=== PATIENT | female | born 1960 | race Caucasian/White ===

== ENCOUNTER → 2023-10-01 17:15 | Outpatient (REF) | payer BC, SELFPAY | LOC: WDC 17:15 | PROVIDERS: ATTENDING PHYSICIAN Obstetrics & Gynecology; FAMILY PHYSICIAN Emergency Medicine | DX: Z12.31 Encounter for screening mammogram for malignant neoplasm of breast (principal) | CPT/HCPCS: 77063; 77067 ==

== ENCOUNTER → 2023-10-22 07:10 | Outpatient (REF) | payer BC, SELFPAY ==
[2023-10-22 07:37] LABS: Hematocrit 42.9 % (37.0-47.0); Mean Corp Hgb Conc. 32.6 g/dL (33.0-37.0); Mean Corpuscular Hgb 28.5 pg (27.0-31.0); Mean Corpuscular Volume 87.2 fL (81.0-99.0); Mean Platelet Volume 8.5 fL (7.4-10.4); Platelet Count 212 10^3/uL (130-400); Red Blood Cell Count 4.92 10^6/uL (4.20-5.40); Red Cell Dist. Width 13.2 % (11.5-14.5); White Blood Cell Count 3.5 10^3/uL (4.8-10.8)
[2023-10-22 07:38] LABS: Ionized Calcium 1.43 mMOL/L (1.15-1.33)
[2023-10-22 07:54] LABS: Iron 82 ug/dl (37-170); Magnesium 2.2 mg/dl (1.6-2.3)
[2023-10-22 08:04] LABS: Percent Saturation 35 % (20-50); Total Iron Binding Capacity 234 ug/dl (265-497)
[2023-10-22 09:19] LABS: Vitamin D, 25-OH*** 51.8 ng/mL (30-80)
[2023-10-22 09:38] LABS: Ferritin 96.8 ng/ml (11.1-264.0)
[2023-10-23 09:34] LABS: Intact PTH 61.5 pg/ml (13.6-85.8)
== END ==
LOC: REG 07:10
PROVIDERS: ATTENDING PHYSICIAN Internal Medicine Endocrinology, Diabetes & Metabolism; FAMILY PHYSICIAN Emergency Medicine
DX: D50.9 Iron deficiency anemia, unspecified (principal); Z79.899 Other long term (current) drug therapy; E83.52 Hypercalcemia; E55.9 Vitamin D deficiency, unspecified; E34.9 Endocrine disorder, unspecified
CPT/HCPCS: 36415; 82306; 82330; 82728; 83540; 83550; 83735; 83970; 85027

== ENCOUNTER → 2023-10-24 09:26 | Outpatient (REF) | payer BC, SELFPAY ==
[2023-10-24 10:01] LABS: 24 Hour Urine Total Volume 1400 ml
[2023-10-24 10:32] LABS: 24 Hour Urine Creatinine 1.006 gm/day (0.8-1.8)
== END ==
LOC: REG 09:26
PROVIDERS: ATTENDING PHYSICIAN Internal Medicine Endocrinology, Diabetes & Metabolism
DX: E83.52 Hypercalcemia (principal); E55.9 Vitamin D deficiency, unspecified; E34.9 Endocrine disorder, unspecified
CPT/HCPCS: 81050; 82570

== ENCOUNTER 2023-10-29 05:08 | Inpatient (IN) | payer BC, SELFPAY ==
[2023-10-28 21:26] VITALS: BP 180/109
[2023-10-28 22:46] LABS: % Basophils 0.3 % (0-2); % Eosinophils 0.1 % (0-6); % Immature Granulocytes 0.3 % (0-0.5); % Lymphocytes 6.7 % (20.5-51.1); % Monocytes 4.5 % (1.7-9.3); % Neutrophils 88.1 % (42.2-75.2); Absolute Lymphocytes 0.7 10^3/uL (1.2-3.4); Absolute Monocytes 0.5 10^3/uL (0.1-0.6); Absolute Neutrophils 9.2 10^3/uL (1.4-6.5); Hematocrit 40.9 % (37.0-47.0); Mean Corp Hgb Conc. 34.2 g/dL (33.0-37.0); Mean Corpuscular Hgb 28.7 pg (27.0-31.0); Mean Corpuscular Volume 83.8 fL (81.0-99.0); Mean Platelet Volume 8.3 fL (7.4-10.4); Nucleated Red Blood Cells % 0 %; Platelet Count 211 10^3/uL (130-400); Red Blood Cell Count 4.88 10^6/uL (4.20-5.40); Red Cell Dist. Width 13.3 % (11.5-14.5); White Blood Cell Count 10.4 10^3/uL (4.8-10.8)
[2023-10-28 23:06] LABS: ALT (SGPT) 31 U/L (0-35); AST (SGOT) 34 U/L (14-36); Albumin 4.8 g/dl (3.5-5.0); Alkaline Phosphatase 95 U/L (38-126); Blood Urea Nitrogen 29 mg/dl (7-17); Calcium 11.3 mg/dl (8.4-10.2); Carbon Dioxide 27 mmol/L (22-30); Chloride 103 mmol/L (98-107); Glucose 114 mg/dl (70-99); Lipase 63 U/L (23-300); Potassium 4.4 mmol/L (3.5-5.1); Sodium 135 mmol/L (135-145); Total Bilirubin 0.7 mg/dl (0.2-1.3); Total Protein 7.7 g/dl (6.3-8.2); eGFR > 60.00
[2023-10-29] VITALS (17 sets, daily range): BP systolic 108–163; BP diastolic 54–86; BMI 28.8; BMI 28.0
[2023-10-29] MEDS: ZOFRAN 4 MG IV (00:36)
[2023-10-29] MEDS: NSS 1000 IV (00:36)
[2023-10-29] MEDS: DILAUDID 1 MG IV (00:37)
--- NOTE | 2023-10-29 00:37 | ED.GENMED ---
Addendum entered and electronically signed by Kel Escamilla DO 10/29/23 02:19:
Patient allergies noted, will check EKG IF QT okay proceed with Levaquin Flagyl
Original Note:
History of Present Illness
General
Chief Complaint: Abdominal Pain
Source: patient and spouse
Exam Limitations: none
Time Seen by Provider: 10/29/23 00:18
Nursing documentation reviewed up to this point in time: agreed with
Travel History
Have you had any contact with someone who has COVID-19?: No
Do you have any symptoms of coronavirus? Fever > 100 degrees, chills, cough, shortness of breath, sore throat, loss of taste or smell, muscle aches, or headache?: No
History of Present Illness
History of Present Illness:
63-year-old female presents with abdominal pain gradual onset earlier today worsens in the right mid abdomen felt feverish mild nausea no vomiting
No dysuria or frequency, no prior abdominal surgeries, non-smoker drinks socially not excess
Pain is worse with movement better with rest
Past History
Past History
ED Past Medical History: GERD
ED Past Surgical History: None
Social History
Tobacco: Non-smoker
Alcohol: Occasional
Drug: None
Personal:
Living: with family
Employment: Employed
Review of Systems
Review of Systems
All Other Systems: Not applicable
Constitutional: Reports fever
EENT: Reports no symptoms
Respiratory: Reports no symptoms
Cardiac: Reports no symptoms
ABD/GI: Reports abdominal pain, nausea and anorexia
: Reports no symptoms
Musculoskeletal: Reports no symptoms
Skin: Reports no symptoms
Neurological: Reports no symptoms
Endocrine: Reports no symptoms
Phy Exam
Physical Exam
Physical Exam:
Physical Exam
General: 60 is female nontoxic looks uncomfortable
Neck: No jaundice
Heart: s1/s2 regular rate and rhythm, no murmur. equal radial pulses.
Lungs: no acute respiratory distress. No wheeze
Abdomen: Tender in the right mid abdomen
Neuro: alert and oriented. no focal neurological deficits
Skin: no rash
Psychiatric: well kept. interactive and cooperative
Extremities: no edema.
Course
Orders/Labs/Results
Orders:
Orders
10/28/23 22:29
Complete Blood Count/With Diff Urgent
Comprehensive Metabolic Panel Urgent
Lipase Urgent
10/29/23 00:18
CT Abd/pelvis W Iv Cont Urgent
Comment:
Reason For Exam: pain
0.9% Sodium Chloride 1000 ml [Nss] 1,000 ml IV BOLUS
HYDROmorphone [Dilaudid] 1 mg IV NOW STA
Ondansetron Injectable [Zofran] 4 mg IV NOW STA
10/29/23 01:38
Urinalysis Reflex To Culture Urgent
Date Specimen was Collected: 10/29/23
Time Specimen was Collected: 01:37
Urine Microscopic Reflex Cult Urgent
Abnormal Lab Results
10/28/23 10/29/23
22:29 01:38
Absolute Neuts (auto) 9.2 H 10^3/uL
(1.4-6.5)
Absolute Lymphs (auto) 0.7 L 10^3/uL
(1.2-3.4)
Neutrophils % 88.1 H %
(42.2-75.2)
Lymphocytes % 6.7 L %
(20.5-51.1)
BUN 29 H mg/dl
(7-17)
Glucose 114 H mg/dl
(70-99)
Calcium 11.3 H mg/dl
(8.4-10.2)
Urine Ketones 1+ A
(Negative)
Ur Occult Blood Reflex 1+ A
(Negative)
10/28/23 22:29
10/28/23 22:29
Vital Signs
Initial and Last Documented VS:
Initial Vital Signs
Temp Pulse Resp BP Pulse Ox
100 F 111 20 180/109 96
10/28/23 21:26 10/28/23 21:26 10/28/23 21:26 10/28/23 21:26 10/28/23 21:26
Last Documented Vital Signs
Temp Pulse Resp BP Pulse Ox
100 F 93 16 130/63 94
10/28/23 21:26 10/29/23 00:35 10/29/23 00:35 10/29/23 01:00 10/29/23 01:00
MDM/Problems Addressed
Differential Diagnosis Includes:
Appendicitis cholecystitis colitis ovarian pathology
MDM/Problems Addressed:
Abdominal pain
*Radiology
Radiology exam reviewed: preliminary read by ED provider
*Pulse Oximetry
Patient hypoxic: no
*EKG
Interpreted by ED Provider?: NA
*Critical Care Note
Total Time (30-74mins, 75-104mins- exclusive of procedures): Not Applicable
Update Note
Update Note:
Update CAT scan looks abnormal to me reviewed with patient radiologist likely liver abscess versus other
ED Attending Note
-
Portions of this chart may have been created with voice recognition software.� Occasional wrong word or��sound alike� substitutions may have occurred due to the inherent limitations of voice recognition software.
Discharge Plan
Departure
Patient Disposition: Admit
Date of Disposition: 10/29/23
Time of Disposition: 02:00
Admit to: Med/Surg
Presentation/result/management discussed w/ accepting MD/DO: Hospitalist
Patient with high blood pressure during this ER visit?: No
Condition: Fair
Covid-19: Not Applicable
Discharge Problem:
Abscess of liver
Referrals:
Bev Carranza MD [Family Provider] -
Interventions
Interventions:
*Risk Screen - Suicide Last Done: 10/28/23 21:26
*General Assessment Last Done: 10/28/23 21:26
*Neglect/Abuse Screening Last Done: 10/28/23 21:26
RC-Elrfds-Rmjfnwezxm Assessment Last Done: 10/29/23 00:50
Discharge Date and Time
Print Language: SAMI
[2023-10-29 01:53] LABS: Urine Albumin Negative (Neg - Trace); Urine Bilirubin Negative (Negative); Urine Character Clear (Clear); Urine Color Yellow; Urine Glucose Negative (Negative); Urine Ketone 1+ (Negative); Urine Leukocyte Negative (Negative); Urine Nitrite Negative (Negative); Urine Occult Blood 1+ (Negative); Urine Urobilinogen Negative (Neg - 1+)
[2023-10-29 02:09] LABS: Urine White Cell None Seen /HPF (0-5)
--- NOTE | 2023-10-29 02:18 | ED.GENMED ---
History of Present Illness
General
Chief Complaint: Abdominal Pain
Time Seen by Provider: 10/29/23 00:18
Travel History
Have you had any contact with someone who has COVID-19?: No
Do you have any symptoms of coronavirus? Fever > 100 degrees, chills, cough, shortness of breath, sore throat, loss of taste or smell, muscle aches, or headache?: No
Past History
Past History
ED Past Medical History: GERD
ED Past Surgical History: None
Social History
Tobacco: Non-smoker
Alcohol: Occasional
Drug: None
Personal:
Living: with family
Employment: Employed
Course
Orders/Labs/Results
Orders:
Orders
10/28/23 22:29
Complete Blood Count/With Diff Urgent
Comprehensive Metabolic Panel Urgent
Lipase Urgent
10/29/23 00:18
CT Abd/pelvis W Iv Cont Urgent
Comment:
Reason For Exam: pain
0.9% Sodium Chloride 1000 ml [Nss] 1,000 ml IV BOLUS
HYDROmorphone [Dilaudid] 1 mg IV NOW STA
Ondansetron Injectable [Zofran] 4 mg IV NOW STA
10/29/23 01:38
Urinalysis Reflex To Culture Urgent
Date Specimen was Collected: 10/29/23
Time Specimen was Collected: 01:37
Urine Microscopic Reflex Cult Urgent
10/29/23 02:00
Blood Culture Q30M
NALDO Source: Blood/Venous
Specimen Description:
10/29/23 02:17
Electrocardiogram (*1) Urgent
Reason for Study: QTc Monitoring
EKG- Treatment ONCE
10/29/23 02:30
Blood Culture Q30M
NALDO Source: Blood/Venous
Specimen Description:
Abnormal Lab Results
03/31/24 04/01/24
22:29 01:38
Absolute Neuts (auto) 9.2 H 10^3/uL
(1.4-6.5)
Absolute Lymphs (auto) 0.7 L 10^3/uL
(1.2-3.4)
Neutrophils % 88.1 H %
(42.2-75.2)
Lymphocytes % 6.7 L %
(20.5-51.1)
BUN 29 H mg/dl
(7-17)
Glucose 114 H mg/dl
(70-99)
Calcium 11.3 H mg/dl
(8.4-10.2)
Urine Ketones 1+ A
(Negative)
Ur Occult Blood Reflex 1+ A
(Negative)
Urine RBC 3-6 A /HPF
(0-2)
10/28/23 22:29
10/28/23 22:29
Vital Signs
Initial and Last Documented VS:
Initial Vital Signs
Temp Pulse Resp BP Pulse Ox
100 F 111 20 180/109 96
10/28/23 21:26 10/28/23 21:26 10/28/23 21:26 10/28/23 21:26 10/28/23 21:26
Last Documented Vital Signs
Temp Pulse Resp BP Pulse Ox
100 F 93 16 130/63 94
10/28/23 21:26 10/29/23 00:35 10/29/23 00:35 10/29/23 01:00 10/29/23 01:00
ED Attending Note
-
Portions of this chart may have been created with voice recognition software.� Occasional wrong word or��sound alike� substitutions may have occurred due to the inherent limitations of voice recognition software.
Discharge Plan
Departure
Patient Disposition: Admit
Date of Disposition: 10/29/23
Time of Disposition: 02:00
Admit to: Med/Surg
Presentation/result/management discussed w/ accepting MD/DO: Hospitalist
Patient with high blood pressure during this ER visit?: No
Condition: Fair
Covid-19: Not Applicable
Discharge Problem:
Abscess of liver
Referrals:
Bev Carranza MD [Family Provider] -
Interventions
Interventions:
*Risk Screen - Suicide Last Done: 10/28/23 21:26
*General Assessment Last Done: 10/28/23 21:26
*Neglect/Abuse Screening Last Done: 10/28/23 21:26
DQ-Slxhsi-Xfnnictjbl Assessment Last Done: 10/29/23 00:50
Discharge Date and Time
Print Language: FINNISH
[2023-10-29] MEDS: FLAGYL 500 MG 100 IV (02:43)
--- NOTE | 2023-10-29 04:41 | HPS.HSE ---
Family Physician
-
Family Physician: Bev Carranza MD
Chief Complaint
-
abdominal pain
History of Present Illness
63F HX GERD pw mid abdominal pain.
Onset today , Gradually get worse, nauseated but no vomiting
Pain is worse with movement better with rest
Feverish - afebrile at ER
No recent travel
Denied Wt loss
Not on ant regular Meds except Omeprazole for GERD
Known to GI group
Medical History
Past Medical History
Past Medical History: Reports GERD
Past Surgical History: Reports None
Social History
Tobacco: Non-smoker
Alcohol: Occasional
Drug: None
Personal:
Living: With Family
Family History
Family History: Not pertinent
Allergies / Home Medications
Allergies reflects when Allergies were last updated in [facility].
Home Medications with original date entered in [facility]
Allergy/Medication List:
Allergies
Allergy/AdvReac Type Severity Reaction Status Date / Time
amoxicillin Allergy Unknown Verified 10/28/23 21:26
Cephalosporins Allergy Unknown Verified 10/28/23 21:26
Penicillins Allergy Unknown Verified 10/28/23 21:26
If medication reconciliation has not been performed, why?: Medication List N/A
Review of Systems
-
Constitutional: Reports No Symptoms
EENT: Reports No Symptoms
Respiratory: Reports No Symptoms
Cardiac: Reports No Symptoms
Abdomen/GI: Reports Abdominal Pain and Nausea; Denies Vomiting, Diarrhea or Constipated
: Reports No Symptoms
Musculoskeletal: Reports No Symptoms
Skin: Reports No Symptoms
Neurological: Reports No Symptoms
Endocrine: Reports No Symptoms
Hematologic/Lymphatic: Reports No Symptoms
Psych: Reports No Symptoms
Physical Exam
Vital Signs
Vital Signs
Temp Pulse Resp BP Pulse Ox
100 F 76 16 122/66 92
10/28/23 21:26 10/29/23 03:00 10/29/23 00:35 10/29/23 03:00 10/29/23 03:30
Physical Exam
General: Well Nourished, No Apparent Distress and Other (not toxic )
HEENT: NormoCephalic, Anicteric, Moist mucous membranes and Nose Appears Normal
Respiratory: Clear
Cardiac: S1/S2 and Regular Rhythm; No Tachycardia
Breast: Deferred by me
GI: Soft, Non Tender, Non Distended and Normal Bowel Sounds
Rectal: Deferred by Provider
Musculoskeletal: No Edema
Neuro: AO x 3
Psych: Calm
Laboratory Results
-
10/28/23 22:29
10/28/23 22:29
Laboratory Results
Total Bilirubin 0.7 mg/dl (0.2-1.3) 10/28/23 22:29
AST 34 U/L (14-36) 10/28/23 22:29
ALT 31 U/L (0-35) 10/28/23 22:29
Alkaline Phosphatase 95 U/L (38-126) 10/28/23 22:29
Lipase 63 U/L (23-300) 10/28/23 22:29
Data Reviewed
-
CT Scan: Report Reviewed by me
Lab Data: Labs Reviewed by me
Impression/Plan
-
Reviewed VS: unremarkable
Data
WCC 10.4
BUN 29
nl Cr
nl GFR
Ca 11.3
NEG UA
BCx sent
CT AP [place] page report
large multicystic collection within Rt liver - largest 13cm x 14 cm DDX: Biliary cystadenoma
No BWO
Moderate stool burden
ASSESSMENT & PLAN
Acute abdominal pain - Clinically stable
CT POS for large multicystic collection within Rt liver - largest 13cm x 14 cm DDX: Biliary cystadenoma vs liver abscess
nl LFT
No diarrhea, No recent travel
- afebrile and nl WCC
- NPO
- Hold off ABx for now
- GI consult for further eval
HX GERD
- on PPI
DVT Px: SCD
Code: Full
IP MS
[2023-10-29 07:07] LABS: Hematocrit 36.6 % (37.0-47.0); Hemoglobin 12.7 g/dL (12.0-16.0); Mean Corp Hgb Conc. 34.7 g/dL (33.0-37.0); Mean Corpuscular Hgb 29.1 pg (27.0-31.0); Mean Corpuscular Volume 83.9 fL (81.0-99.0); Mean Platelet Volume 8.5 fL (7.4-10.4); Platelet Count 190 10^3/uL (130-400); Red Blood Cell Count 4.36 10^6/uL (4.20-5.40); Red Cell Dist. Width 13.1 % (11.5-14.5); White Blood Cell Count 8.5 10^3/uL (4.8-10.8)
[2023-10-29 07:41] LABS: ALT (SGPT) 23 U/L (0-35); AST (SGOT) 23 U/L (14-36); Albumin 3.6 g/dl (3.5-5.0); Alkaline Phosphatase 70 U/L (38-126); Blood Urea Nitrogen 22 mg/dl (7-17); Calcium 10.4 mg/dl (8.4-10.2); Carbon Dioxide 26 mmol/L (22-30); Chloride 102 mmol/L (98-107); Estimated Creatinine Clearance 106 ml/min; Glucose 103 mg/dl (70-99); Potassium 4.5 mmol/L (3.5-5.1); Sodium 134 mmol/L (135-145); Total Bilirubin 0.8 mg/dl (0.2-1.3); Total Protein 6.1 g/dl (6.3-8.2); eGFR > 60.00
--- NOTE | 2023-10-29 09:07 | CON.GI ---
Addendum entered and electronically signed by Avtar Mosquera MD 10/29/23 17:49:
I saw and examined the patient.
The PLATE MOLDER or PA's note was reviewed and I agree with the note.
Comment:
Pt with iron def anemia diverticulosis, constipation who had acute abd pain, imaging by Ct showed a 15 cm liver cyst vs. abscess. MRI revealed either cyst or biliary cystadenoma. Pain has markedly improved in ER and pt hungry. No travel or
diarrhea
abd: soft nontender
impression
liver cyst vs cystadenoma
abd pain resolved
plan;
discussed with [place] [facility] specialist dr. bello who would not take sample and will d/w liver tumor board at [place] and come up with a plan regarding f/u. he believes this may be an incidental finding. so for now. advance diet and if pain is
resolved can do outpatient f/u. he will get in touch with Dr. Quintero and I will send her a message. I also explained to both patient, and Dr Colbert. they did give me their daughters number but when I called I had the wrong number.
if remains inpatient will continue w/u as well as look for other sources of pain.
Original Note:
Consultation
-
Date/Time Consultation Requested: 10/29/2023 @ 05:12
Date/Time Consultation Performed: 10/29/2023 @ 09:15
Requesting Provider: Dr. Champion
Performing Provider: CADE Beavers; Dr. Avtar Mosquera
Reason for Consultation: liver cyst/abscess
Medical History
Chief Complaint / HPI
Chief Complaint: Abdominal pain
History of Present Illness:
The patient is a 63-year-old female with a past medical history significant for iron deficiency anemia, chronic constipation, history of colon polyps, seasonal allergies, GERD, who presented to the emergency room with complaints of abdominal pain.
We are being asked to evaluate for possible liver abscess versus large simple cyst. She was last seen in the office in April, for routine follow-up of iron deficiency anemia along with chronic constipation. At that time had no complaints of
abdominal pain. She had extensive GI workup including VCE, EGD, colonoscopy for iron deficiency anemia which were unrevealing. She has had celiac and H. pylori testing in the past was also have been negative. She managed constipation with OTC
regimen. Today she reports acute onset of sharp right-sided abdominal pain around 2 PM yesterday. She notes that she has had intermittent discomfort to the right side but nothing severe and did not think much of it. She often relates this
discomfort to her chronic constipation. She notes with the severe onset of the right-sided abdominal pain yesterday she was unable to eat and felt nauseous. She also admits to feeling feverish and having chills but did not take a temperature at
home. She continued with symptoms and was unable to eat at her Easter dinner, which led her to coming to the emergency room. She denies any unintentional weight loss or loss of appetite prior to the onset of her symptoms. She denies any recent
travel or sick contacts, but notes she does have a mild respiratory infection several weeks prior. She denies any history of colitis or diverticulitis. She reports that she will take fiber or MiraLAX as needed for constipation, with her last bowel
movement being 2 days ago. He denies any overt diarrhea. She denies any melena, hematochezia, or hematemesis. She denies any history of liver disease. She denies any history of liver cysts but has never had imaging of her abdomen to her
recollection. She denies any family history of colon cancer, liver cancer or other GI cancers or disorders. She denies history of drug use. She drinks alcohol 1-2 times weekly with wine at most. A CT of the abdomen pelvis was done with IV
contrast only showing 'multiple large cystic collections within the liver the largest measuring up to 15 cm, along with moderate fecal retention within the cecum, and findings concerning for possible colitis of the ascending colon. Also present with
multiple large parapelvic cysts measuring up to 4 cm.' Routine labs on admission showed WBC 10.4, hemoglobin 14.0, platelets 211,000, sodium 135, potassium 4.4, BUN 29, creatinine 0.8, calcium 11.3, total bilirubin 0.7, AST 34, ALT 31, alk phos 95,
lipase 63. Blood cultures were sent and are pending. She did receive 1 dose of Flagyl and 1 L of IV fluid. Further antibiotics were held and she was made n.p.o., admitted for further evaluation by GI.
Past Medical History
Past Medical History: GERD and Other (Iron deficiency anemia, seasonal allergies, incomplete right bundle branch block)
Past Surgical History: Orthopedic (Right knee arthroscopy, meniscus surgery, bunionectomy of the left foot) and Other ([employer] teeth extraction)
Social History
Tobacco: Non-Smoker
Alcohol: Occasional
Drug: None
Personal:
Living: With Family
Family History
Family History: Reviewed & Not Pertinent
Allergies / Home Medications
Allergy/AdvReac Type Severity Reaction Status Date / Time
amoxicillin Allergy Unknown Verified 10/28/23 21:26
Cephalosporins Allergy Unknown Verified 10/28/23 21:26
Penicillins Allergy Unknown Verified 10/28/23 21:26
Review of Systems
-
History Source: Patient
Constitutional: Reports Fever and Chills
EENT: Reports No Symptoms
Respiratory: Reports No Symptoms
Cardiac: Reports No Symptoms
Abdomen/GI: Reports Abdominal Pain, Nausea and Constipated
: Reports No Symptoms
Musculoskeletal: Reports No Symptoms
Skin: Reports No Symptoms
Neurological: Reports No Symptoms
Vital Signs
Temp Pulse Resp BP Pulse Ox
100 F 84 16 121/64 94
10/28/23 21:26 10/29/23 06:52 10/29/23 00:35 10/29/23 07:00 10/29/23 07:30
Physical Exam
Exam
General: Well Developed, Well Nourished and No Apparent Distress
HEENT: Normocephalic, Anicteric and Atraumatic
Respiratory: Clear
Cardiac: S1/S2 and Regular Rhythm
Breast: Deferred by me
GI: Soft, Non Distended, Normal Bowel Sounds and Tender (Left upper quadrant, right upper quadrant, right lower quadrant)
Rectal: Deferred by Provider
Musculoskeletal: No Edema
Skin: Warm and Dry
Neuro: Awake, Alert and Oriented
Psych: Calm
Results
WBC 8.5 10^3/uL (4.8-10.8) 10/29/23 06:53
Hgb 12.7 g/dL (12.0-16.0) 10/29/23 06:53
Hct 36.6 % (37.0-47.0) L 10/29/23 06:53
MCV 83.9 fL (81.0-99.0) 10/29/23 06:53
Plt Count 190 10^3/uL (130-400) 10/29/23 06:53
Absolute Neuts (auto) 9.2 10^3/uL (1.4-6.5) H 10/28/23 22:29
Sodium 134 mmol/L (135-145) L 10/29/23 06:53
Potassium 4.5 mmol/L (3.5-5.1) 10/29/23 06:53
Chloride 102 mmol/L (98-107) 10/29/23 06:53
Carbon Dioxide 26 mmol/L (22-30) 10/29/23 06:53
BUN 22 mg/dl (7-17) H 10/29/23 06:53
Creatinine 0.6 mg/dL (0.6-1.0) 10/29/23 06:53
Calcium 10.4 mg/dl (8.4-10.2) H 10/29/23 06:53
Total Bilirubin 0.8 mg/dl (0.2-1.3) 10/29/23 06:53
AST 23 U/L (14-36) 10/29/23 06:53
ALT 23 U/L (0-35) 10/29/23 06:53
Alkaline Phosphatase 70 U/L (38-126) 10/29/23 06:53
Lipase 63 U/L (23-300) 10/28/23 22:29
Diagnostic Image Results:
10/29/2023 CT A/P w/IV contrast: IMPRESSION:
'1. Multiple large cystic collections within the liver, measuring up to 15 cm in diameter. Differential diagnosis includes large simple cyst, biliary cystadenoma, and hepatic abscess. Large number of parapelvic cysts within the kidneys.
2. Moderate fecal retention within the cecum. Possible bubbles of air within the vasculature adjacent to the ascending colon, best seen on coronal image 32. Findings are concerning for STIR cor colitis/other colitis of the ascending colon, with
intestinal ischemia.'
Prior GI Procedures:
EGD:12/04/2022 Dr. Quintero: No gross lesions in the entire esophagus. Small hiatal hernia. Z-line regular, 36 cm from the incisors. No gross lesions in the entire stomach. Biopsied. Normal examined duodenum. Biopsied. Path showing gastritis, neg for
H pylori; duodenal bx showed increased in intraepithelial lymphocytes.
Colonoscopy: 09/27/2020 Dr. Quintero: 'The examined portion of the ileum was normal. One 2 mm polyp in the cecum, removed with a jumbo cold forceps. Resected and retrieved. Diverticulosis in the sigmoid colon and at the hepatic flexure. Internal
hemorrhoids. Tortuous colon.' Path benign.
11/24/2013 Dr. Quintero: Non-thrombosed external hemorrhoids found on perianal exam. Diverticulosis at the hepatic flexure. One 4 mm polyp at the hepatic flexure. Resected and retrieved. Injected. One 1 mm polyp in the rectum. Resected and
retrieved. Tortuous colon. Path showing sessile serrated polyp and adenomatous polyp.
Assessment / Plan
-
The patient is a 63-year-old female with a past medical history significant for iron deficiency anemia, chronic constipation, history of colon polyps, seasonal allergies, GERD, who presented to the emergency room with complaints of abdominal pain.
We are being asked to evaluate for possible liver abscess versus large cyst. She presents with acute onset of right-sided abdominal pain along with nausea, loss of appetite, with chills and suspected fevers. CT imaging as above showing multiple
liver cysts measuring 15 cm at the largest with possible colitis of the ascending colon. No leukocytosis but with low-grade fever of 100 here. Further antibiotics have been held on admission. She continues with abdominal pain on the right side
intermittently. LFTs are normal. No history of cysts but no prior abdominal imaging to review.
Problem list:
-RUQ abdominal pain
-liver cyst v abscess, CT showing multiple cystic structures largest 15cm
-Possible ascending colitis, hx hepatic flexure diverticulosis
-chronic constipation
-Hx GERD
-Iron deficiency anemia, off oral iron
-hx adenomatous colon polyps, tortuous colon
Recommendations:
-Etiology of liver findings possible cystic structures v abscess v other. There are multiple cystic appearing structures of the liver along with kidney cysts per radiology read.
---Discussed imaging with radiology who feel there is not much inflammatory change in the adjacent liver giving an appearance more to represent a cyst but further imaging with MRI may help characterize.
-Will order MRI with and without contrast for further evaluation. Will review with Dr. Mosquera.
-She does have a hx of diverticulosis at on colonoscopy with chronic constipation. ?adjacent colitis/diverticulitis but difficult to discern without oral contrast. Await MRI.
-Trend LFTs
-Monitor for fevers, leukocytosis, other concerns of infection. Further antibiotics have been held at this time.
-OK for CLD for now
-PRN analgesics as per hospitalist
-Discussed with Dr. Bello from hepatology at [place] as well who advises discussion with radiology as above. If needed he can assist with imaging review at [place]. Will await MRI.
-Daily bowel regimen with MiraLax to avoid constipation
-Will follow closely
-
-
Thank you for consultation and allowing me to participate in the patient's care. Please call the [facility] GI physician during the after hours with any questions or concerns.
--- NOTE | 2023-10-29 09:44 | EDRN ---
Pt has received clear liquid diet tray at this time.
--- NOTE | 2023-10-29 09:45 | EDRN ---
Sherri HUERTAS in room w/pt. Works w/ Dr. Lantigua in GI.
[2023-10-29] MEDS: TYLENOL 650 MG PO ×2 (09:55→18:19)
[2023-10-29] MEDS: TORADOL 15 MG IV ×2 (09:56→20:06)
[2023-10-29] MEDS: FLUSH (NSS) 1 FLUSH IV (09:57)
--- NOTE | 2023-10-29 13:25 | EDRN ---
Pt OOB to BR at this time. Pt to move to room DH2 and care transferred to Juan C Umanzor RN.
--- NOTE | 2023-10-29 14:56 | W.PN.HOSP.TC ---
Today's Communication/Plan
-
Clear liquids
GI consult
Abdominal MRI
Assessment / Plan
Assessment / Plan
Gen-AAOx3, NAD
HEENT-NC, AT, anicteric, clear oral mm
Neck-supple
CV-reg, no M, +S1/S2
Lungs-clear B/L
Abd-soft, nondistended, minimal right upper quadrant tenderness
Ext-no edema
Musculoskeletal-no cyanosis, clubbing
Skin-warm and dry
Neuro-grossly non-focal
Psych-calm, cooperative
Abdominal pain, acute -unclear if related to hepatic cysts versus other causes such as chronic constipation. I see no evidence of colitis clinically. Doubt hepatic abscess. CT abdomen/pelvis noted. She does have moderate fecal retention within
the cecum. Awaiting abdominal MRI report.
Chronic hypercalcemia -suspect primary hyperparathyroidism. Follow-up with Dr. Ortez, endocrinology. She saw her once in the office. Calcium 10.4 this morning.
Chronic constipation
Colon polyp/diverticulosis/internal hemorrhoids -last colonoscopy was September 2020.
Hyponatremia -134.
GERD
History of chronic iron deficiency anemia -no longer on iron supplements.
Full code
Anticipated Discharge: 24 - 48 hours
Subjective/Interval History
-
Date of Service: October 29, 2023
Patient seen and examined. Less abdominal pain today compared to yesterday. Overall feels fine.
Objective Data
-
Labs:
Laboratory Results
10/29/23
06:53
WBC 8.5
Hgb 12.7
Hct 36.6 L
Plt Count 190
Sodium 134 L
Potassium 4.5
Chloride 102
Carbon Dioxide 26
BUN 22 H
Creatinine 0.6
Glucose 103 H
Calcium 10.4 H
Total Bilirubin 0.8
AST 23
ALT 23
Alkaline Phosphatase 70
Vital Signs:
Vital Signs
Temp Pulse Resp BP Pulse Ox
98.6 F 71 16 113/56 95
10/29/23 09:49 10/29/23 13:00 10/29/23 13:00 10/29/23 13:00 10/29/23 13:00
Review of Systems
-
History Source: Patient
All other systems: Reviewed and negative
--- NOTE | 2023-10-29 17:49 | W.PN.UPDATE ---
Update Note
Progress Note Update
for billing purposes only
--- NOTE | 2023-10-29 18:45 | PTCARENOTE ---
Received pt from ED.Pt awake, alert and oriented x3. Pt c/o pain in right shoulder and right upper abd, medicated with tylenol per orders. Pt VSS 96% on RA. Pt oriented to room,call frazier within reach, plan of care ongoing.
[2023-10-30] MEDS: TYLENOL 650 MG PO (03:15)
[2023-10-30 06:00] VITALS: BMI 27.6
[2023-10-30 06:07] LABS: % Basophils 0.7 % (0-2); % Immature Granulocytes 0.2 % (0-0.5); % Lymphocytes 21.3 % (20.5-51.1); % Monocytes 8.2 % (1.7-9.3); % Neutrophils 68.6 % (42.2-75.2); Absolute Lymphocytes 0.9 10^3/uL (1.2-3.4); Absolute Monocytes 0.3 10^3/uL (0.1-0.6); Absolute Neutrophils 2.8 10^3/uL (1.4-6.5); Hematocrit 38.3 % (37.0-47.0); Hemoglobin 13.1 g/dL (12.0-16.0); Mean Corp Hgb Conc. 34.2 g/dL (33.0-37.0); Mean Corpuscular Volume 84.7 fL (81.0-99.0); Mean Platelet Volume 8.7 fL (7.4-10.4); Nucleated Red Blood Cells % 0 %; Platelet Count 190 10^3/uL (130-400); Red Blood Cell Count 4.52 10^6/uL (4.20-5.40); Red Cell Dist. Width 13.3 % (11.5-14.5); White Blood Cell Count 4.1 10^3/uL (4.8-10.8)
[2023-10-30 06:41] LABS: ALT (SGPT) 20 U/L (0-35); AST (SGOT) 22 U/L (14-36); Albumin 3.4 g/dl (3.5-5.0); Alkaline Phosphatase 72 U/L (38-126); Blood Urea Nitrogen 17 mg/dl (7-17); Carbon Dioxide 25 mmol/L (22-30); Chloride 105 mmol/L (98-107); Estimated Creatinine Clearance 90 ml/min; Glucose 83 mg/dl (70-99); Potassium 4.2 mmol/L (3.5-5.1); Sodium 134 mmol/L (135-145); Total Bilirubin 0.8 mg/dl (0.2-1.3); eGFR > 60.00
[2023-10-30 07:20] VITALS: BP 133/78
[2023-10-30] MEDS: MIRALAX 17 GRAMS PO (08:36)
--- NOTE | 2023-10-30 09:31 | W.PN.HOSP.TC ---
Today's Communication/Plan
-
Advance diet
Discharge
Assessment / Plan
Assessment / Plan
Gen-AAOx3, NAD
HEENT-NC, AT, anicteric, clear oral mm
Neck-supple
CV-reg, no M, +S1/S2
Lungs-clear B/L
Abd-soft, nondistended, minimal right upper quadrant tenderness
Ext-no edema
Musculoskeletal-no cyanosis, clubbing
Skin-warm and dry
Neuro-grossly non-focal
Psych-calm, cooperative
Abdominal pain, acute - possibly related to large hepatic cyst. Abdominal MRI confirms right hepatic lobe cyst measuring 15 cm, suggestive of complex cyst or biliary cystadenoma. GI recommends outpatient follow-up. Conservative management for
now. Referral to tumor board at [place]. Outpatient follow-up with Dr. Quintero.
Advance diet to regular. Anticipate discharge today if she remains stable. Her abdominal pain is resolved.
Chronic hypercalcemia -suspect primary hyperparathyroidism. Follow-up with Dr. Ortez, endocrinology. She saw her once in the office. Calcium 10.4 this morning.
Chronic constipation -continue daily MiraLAX.
Colon polyp/diverticulosis/internal hemorrhoids -last colonoscopy was September 2020.
Hyponatremia -134.
GERD
History of chronic iron deficiency anemia -no longer on iron supplements.
Full code
32-minute spent in discharge process.
Anticipated Discharge: Today
Subjective/Interval History
-
Date of Service: October 30, 2023
Patient seen and examined. Feeling better. Mild referred pain to the right shoulder occasionally.
Objective Data
-
Labs:
Laboratory Results
10/30/23
05:35
WBC 4.1 L
Hgb 13.1
Hct 38.3
Plt Count 190
Sodium 134 L
Potassium 4.2
Chloride 105
Carbon Dioxide 25
BUN 17
Creatinine 0.7
Glucose 83
Calcium 10.0
Total Bilirubin 0.8
AST 22
ALT 20
Alkaline Phosphatase 72
Vital Signs:
Vital Signs
Temp Pulse Resp BP Pulse Ox
97.7 F 86 16 133/78 93
10/30/23 07:20 10/30/23 07:20 10/30/23 07:20 10/30/23 07:20 10/30/23 07:20
I&O
10/29/23 10/30/23 10/31/23
06:59 06:59 06:59
Intake Total 480 / 480
Balance 480 / 480
Review of Systems
-
History Source: Patient
All other systems: Reviewed and negative
--- NOTE | 2023-10-30 09:35 | W.DS.TRANS ---
DC Summary - [employer]
-
Discharge Instructions:
Discharge Diagnosis/Procedures Hepatic cyst
Diet Regular
Activity As tolerated
Driving Restrictions As prior to admission
Bathing Restrictions None
Instructions:
Stand-Alone Forms:
Changes to Home Medications: No
Discharge Medications:
DC Medications w/original date entered in [facility]
Prevagen 1 cap PO DAILY Supplement 10/29/23
fexofenadine-pseudoephedrine ER 180 mg-240 mg tablet,ext.release 24 hr (Danni-D 24 Hour) 1 tab PO DAILY Allergies 10/29/23
magnesium 250 mg tablet 250 mg PO DAILY Supplement 10/29/23
omeprazole 20 mg tablet,delayed release 20 mg PO DAILY Gastrointestinal Issue 10/29/23
therapeutic multivitamin 1 tab PO DAILY Supplement 10/29/23
ibuprofen 800 mg tablet 800 mg PO Q8H PRN Pain #20 tabs 10/30/23
polyethylene glycol 3350 17 gram oral powder packet (HealthyLax) 17 g PO DAILY #0 ea 10/30/23
Home Medication Changes
Pending Results: No
--- NOTE | 2023-10-30 10:21 | CM ---
CM met with pt bedside and noted dc order
Pt resides with spouse in a 2SH with 2STE and full flight
Pt notes independence throughout room and no dc needs noted
PCP- Bev Carranza
Rx- [facility]
Discharge Disposition- home, no needs- spouse transport
[2023-10-30 11:07] VITALS: BP 119/64
--- NOTE | 2023-10-30 12:36 | PTCARENOTE ---
IV discontinued. Discharge paperwork printed and reviewed with patient who verbalized understanding. Pt transported off the floor via wheelchair accompanied by spouse and with all belongings from the room.
== END 2023-10-30 12:14 | disposition home or self-care (01) | DRG 442 ==
LOC: 4 EAST ACU 05:08
PROVIDERS: Student in an Organized Health Care Education/Training Program; ADMITTING PHYSICIAN Internal Medicine; ATTENDING PHYSICIAN Hospitalist; CONSULT PHYSICIAN Internal Medicine; EMERGENCY PHYSICIAN Emergency Medicine; FAMILY PHYSICIAN Emergency Medicine
DX: K76.89 Other specified diseases of liver (principal); E87.1 Hypo-osmolality and hyponatremia; K21.9 Gastro-esophageal reflux disease without esophagitis; D50.8 Other iron deficiency anemias; E83.52 Hypercalcemia; K59.09 Other constipation; Z88.0 Allergy status to penicillin; Z88.1 Allergy status to other antibiotic agents; Z87.19 Personal history of other diseases of the digestive system
CPT/HCPCS: 74177; 74183; 80053; 81003; 81015; 83690; 85025; 85027; 87040; 93005; 96361; 96365; 96375; 99285; A9575; Q9967

== ENCOUNTER → 2024-01-16 16:27 | Outpatient (REF) | payer BC, SELFPAY ==
[2024-01-16 16:53] LABS: % Basophils 0.4 % (0-2); % Eosinophils 0.3 % (0-6); % Immature Granulocytes 0.4 % (0-0.5); % Lymphocytes 7.7 % (20.5-51.1); % Monocytes 7.6 % (1.7-9.3); % Neutrophils 83.6 % (42.2-75.2); Absolute Basophils 0.1 10^3/uL (0-0.2); Absolute Immature Granulocytes 0.1 10^3/uL (0-0.05); Absolute Neutrophils 11.1 10^3/uL (1.4-6.5); Hematocrit 38.1 % (37.0-47.0); Hemoglobin 13.2 g/dL (12.0-16.0); Mean Corp Hgb Conc. 34.6 g/dL (33.0-37.0); Mean Corpuscular Hgb 28.8 pg (27.0-31.0); Mean Platelet Volume 8.1 fL (7.4-10.4); Nucleated Red Blood Cells % 0 %; Platelet Count 365 10^3/uL (130-400); Red Blood Cell Count 4.59 10^6/uL (4.20-5.40); Red Cell Dist. Width 13.7 % (11.5-14.5); White Blood Cell Count 13.2 10^3/uL (4.8-10.8)
[2024-01-16 17:06] LABS: Blood Urea Nitrogen 18 mg/dl (7-17); Calcium 10.5 mg/dl (8.4-10.2); Carbon Dioxide 27 mmol/L (22-30); Chloride 99 mmol/L (98-107); Direct Bilirubin 0.2 mg/dl (0.0-0.4); Glucose 144 mg/dl (70-99); Potassium 4.5 mmol/L (3.5-5.1); Sodium 134 mmol/L (135-145); eGFR > 60.00
== END ==
LOC: REG 16:27
PROVIDERS: ATTENDING PHYSICIAN Nurse Practitioner Acute Care; FAMILY PHYSICIAN Emergency Medicine
DX: K76.89 Other specified diseases of liver (principal)
CPT/HCPCS: 36415; 80048; 82248; 85025

== ENCOUNTER 2024-01-18 22:28 | Emergency (ER) | payer BC, SELFPAY ==
[2024-01-18 22:32] VITALS: BP 149/87
[2024-01-18 23:04] VITALS: BMI 27.2
--- NOTE | 2024-01-18 23:06 | ED.GENMED ---
History of Present Illness
General
Chief Complaint: Fever
Source: patient and spouse
Time Seen by Provider: 01/18/24 22:53
History of Present Illness
History of Present Illness:
63-year-old female presents to the emergency room complaining of fever. Patient had surgery at [facility] on January 06 to remove very large hepatic cysts. She also had a cholecystectomy performed at the same time. Postoperatively
the patient had 2 drains, one in the region of the hepatic cyst and the second in the region of the gallbladder. Drains were removed yesterday. Patient has been having some intermittent very low-grade fevers. She had been in communication with
her surgeons and they were not concerned about that. However today she developed a temperature of 102 associated with chills, malaise, myalgias. Patient has not experienced an increase in abdominal pain. She denies any dysuria or frequency. She
has an occasional cough primarily when she uses her incentive spirometer. She does not feel short of breath. She took Tylenol at about 9 PM.
Past History
Past History
ED Past Medical History: GERD
ED Past Surgical History: None
Social History
Tobacco: Non-smoker
Alcohol: Occasional
Drug: None
Personal:
Living: with family
Employment: Employed
Phy Exam
Physical Exam
Physical Exam:
General: Awake, Alert, Oriented X3. No acute distress.
Vitals: Tachycardic, normotensive
Head: Atraumatic
Eyes: Pupils equal, EOMI
Throat: Airway intact, no exudates, very dry mucosa
Neck: Trachea midline
Lungs: Clear and equal b/l
Heart: Decreased breath sounds right base
Abd: Soft, laparoscopic incisions appear intact, no erythema, mild tenderness to palpation diffusely but no particular area of increased tenderness and no peritoneal signs, no pulsatile mass
Neuro: Nonfocal
Skin: Warm, dry, no rash
Extremities: pulses equal b/l, no edema
Course
Orders/Labs/Results
Orders:
Orders
01/18/24 22:39
ECG [Electrocardiogram (*1)] Urgent
Reason for Study: Bradycardia / Tachycardia
01/18/24 22:40
EKG- Treatment ONCE
01/18/24 23:01
Urinalysis Reflex To Culture Urgent
Date Specimen was Collected: 01/19/24
Time Specimen was Collected: 01:35
Iohexol [Omnipaque] See Protocol PO NOW STA
01/18/24 23:05
0.9% Sodium Chloride 1000 ml [Nss] 2,400 ml IV NOW STA
01/18/24 23:30
COVID-19 Antigen Urgent
Source: Nasal Swab
Lactic Acid Q4H
Comment: CANCEL 2nd LACTIC ACID IF 1st LACTIC ACID IS LESS THAN 2
01/18/24 23:31
Complete Blood Count/With Diff Urgent
Comprehensive Metabolic Panel Urgent
Blood Culture Q30M
NALDO Source: Blood/Venous
Specimen Description:
Influenza A+B Rapid Molecular Urgent
NALDO Source: Nasal Swab
Specimen Description:
01/18/24 23:44
Blood Culture Q30M
NALDO Source: Blood/Venous
Specimen Description:
01/19/24 00:00
CT Abd/pel W Iv And Oral Contr Urgent
Reason For Exam: fever, recent surgery for hepatic cyst removal
01/19/24 00:04
CR Chest - 2 Views Urgent
Reason For Exam: fever
01/19/24 01:38
Urine Microscopic Reflex Cult Urgent
01/19/24 03:52
LevoFLOXacin 750 MG/150 ML [Levaquin] 750 mg in 150 ml IV NOW
MetroNIDAZOLE 500 MG/100 ML [Flagyl 500 mg] 100 ml IV NOW
01/19/24 04:36
Acetaminophen [Tylenol] 650 mg .ROUTE .STK-MED ONE
Acetaminophen [Tylenol] 650 mg PO NOW STA
Abnormal Lab Results
01/18/24 01/19/24
23:31 01:38
WBC 12.7 H 10^3/uL
(4.8-10.8)
RBC 4.11 L 10^6/uL
(4.20-5.40)
Hgb 11.9 L g/dL
(12.0-16.0)
Hct 33.8 L %
(37.0-47.0)
Absolute Neuts (auto) 11.3 H 10^3/uL
(1.4-6.5)
Absolute Lymphs (auto) 0.6 L 10^3/uL
(1.2-3.4)
Absolute Monos (auto) 0.8 H 10^3/uL
(0.1-0.6)
Neutrophils % 88.5 H %
(42.2-75.2)
Lymphocytes % 4.4 L %
(20.5-51.1)
Sodium 132 L mmol/L
(135-145)
BUN 18 H mg/dl
(7-17)
Glucose 119 H mg/dl
(70-99)
AST 49 H U/L
(14-36)
ALT 67 H U/L
(0-35)
Alkaline Phosphatase 203 H U/L
(38-126)
Total Protein 5.8 L g/dl
(6.3-8.2)
Albumin 3.3 L g/dl
(3.5-5.0)
Leukocyte Esterase Rfl Trace A
(Negative)
Urine Bacteria (Reflex) Few A
(Negative)
01/18/24 23:31
01/18/24 23:31
Vital Signs
Initial and Last Documented VS:
Initial Vital Signs
Temp Pulse Resp BP Pulse Ox
99.4 F 131 20 149/87 94
01/18/24 22:32 01/18/24 22:32 01/18/24 22:32 01/18/24 22:32 01/18/24 22:32
Last Documented Vital Signs
Temp Pulse Resp BP Pulse Ox
100.4 F H 113 32 134/77 97
01/19/24 04:34 01/19/24 04:45 01/19/24 04:45 01/19/24 04:00 01/19/24 04:00
MDM/Problems Addressed
Differential Diagnosis Includes:
Viral illness, pneumonia, urinary tract infection, intra-abdominal abscess or infection, cholangitis
MDM/Problems Addressed:
Patient presents with fever malaise. Labs show a mild elevation white blood cell. Lactate is normal. Mild elevation transaminases. Chest x-ray not consistent with pneumonia. CT shows a fluid collection concerning for abscess formation. Case
discussed with Dr. Davila, the patient's surgeon at [place]. Recommends transfer. IV antibiotics initiated.
*Radiology
Radiology exam reviewed: other (Vision report)
*Pulse Oximetry
Patient hypoxic: no
*Critical Care Note
Total Time (30-74mins, 75-104mins- exclusive of procedures): Not Applicable
Data Reviewed
Review of Other/Old Records Reveals: Radiology Studies
Patient Management
Social determinants of health affecting care: Strong social support
ED Attending Note
-
Portions of this chart may have been created with voice recognition software.� Occasional wrong word or��sound alike� substitutions may have occurred due to the inherent limitations of voice recognition software.
Discharge Plan
Departure
Patient Disposition: Acute Care Hospital
Date of Disposition: 01/19/24
Time of Disposition: 04:12
Condition: Fair
Discharge Problem:
Abscess of liver
Prescriptions:
No Action
therapeutic multivitamin Tablet
1 tab PO DAILY
magnesium 250 mg Tablet
250 mg PO DAILY
fexofenadine-pseudoephedrine [Danni-D 24 Hour] 180-240 mg Tablet Extended Release 24 Hr
1 tab PO DAILY
omeprazole 20 mg Tablet,Delayed Release (Dr/Ec)
20 mg PO DAILY
Prevagen
1 cap PO DAILY
polyethylene glycol 3350 [HealthyLax] 17 gram Powder In Packet
17 g PO DAILY Qty: 0 0RF
ibuprofen 800 mg tablet
800 mg PO Q8H PRN (Reason: Pain) Qty: 20 0RF
Referrals:
Bev Carranza MD [Family Provider] -
Hospital Transfer
Other hospital: [facility]
I certify that the patient requires transfer: Yes
Discussed case with accepting physician: Dr. George
Reason for transfer: specialties available
Interventions
Interventions:
*Risk Screen - Suicide Last Done: 01/18/24 22:32
*General Assessment Last Done: 01/18/24 22:32
*Neglect/Abuse Screening Last Done: 01/18/24 22:32
ED- Neurological Assessment Last Done: 01/18/24 23:40
ED-Skin Assessment Last Done: 01/19/24 02:37
Discharge Date and Time
Print Language: [id number]
[2024-01-18] MEDS: OMNIPAQUE 50 ML PO (23:30)
[2024-01-18] MEDS: NSS 2400 ML IV (23:41)
[2024-01-18 23:52] LABS: % Basophils 0.3 % (0-2); % Eosinophils 0.1 % (0-6); % Immature Granulocytes 0.3 % (0-0.5); % Lymphocytes 4.4 % (20.5-51.1); % Monocytes 6.4 % (1.7-9.3); % Neutrophils 88.5 % (42.2-75.2); Absolute Lymphocytes 0.6 10^3/uL (1.2-3.4); Absolute Monocytes 0.8 10^3/uL (0.1-0.6); Absolute Neutrophils 11.3 10^3/uL (1.4-6.5); Hematocrit 33.8 % (37.0-47.0); Hemoglobin 11.9 g/dL (12.0-16.0); Mean Corp Hgb Conc. 35.2 g/dL (33.0-37.0); Mean Corpuscular Volume 82.2 fL (81.0-99.0); Mean Platelet Volume 8.4 fL (7.4-10.4); Nucleated Red Blood Cells % 0 %; Platelet Count 392 10^3/uL (130-400); Red Blood Cell Count 4.11 10^6/uL (4.20-5.40); Red Cell Dist. Width 13.6 % (11.5-14.5); White Blood Cell Count 12.7 10^3/uL (4.8-10.8)
[2024-01-19 00:05] LABS: Lactic Acid 0.7 mmol/L (0.7-2.0)
[2024-01-19 00:07] LABS: ALT (SGPT) 67 U/L (0-35); AST (SGOT) 49 U/L (14-36); Albumin 3.3 g/dl (3.5-5.0); Alkaline Phosphatase 203 U/L (38-126); Blood Urea Nitrogen 18 mg/dl (7-17); Calcium 10.1 mg/dl (8.4-10.2); Carbon Dioxide 24 mmol/L (22-30); Chloride 99 mmol/L (98-107); Estimated Creatinine Clearance 80 ml/min; Glucose 119 mg/dl (70-99); Potassium 4.2 mmol/L (3.5-5.1); Sodium 132 mmol/L (135-145); Total Bilirubin 0.7 mg/dl (0.2-1.3); Total Protein 5.8 g/dl (6.3-8.2); eGFR > 60.00
[2024-01-19 00:12] LABS: COVID-19 Antigen Negative (Negative)
[2024-01-19 01:56] LABS: Urine Albumin Negative (Neg - Trace); Urine Bilirubin Negative (Negative); Urine Character Clear (Clear); Urine Color Yellow; Urine Glucose Negative (Negative); Urine Ketone Negative (Negative); Urine Leukocyte Trace (Negative); Urine Nitrite Negative (Negative); Urine Occult Blood Negative (Negative); Urine Specific Gravity 1.005 (<1.030); Urine Urobilinogen Negative (Neg - 1+)
[2024-01-19 02:25] LABS: Urine Bacteria Few (Negative); Urine Red Blood Cell 0-2 /HPF (0-2)
[2024-01-19 02:35] VITALS: BP 139/80
[2024-01-19 02:37] VITALS: BP 139/80
[2024-01-19 03:00] VITALS: BP 134/81
[2024-01-19 04:00] VITALS: BP 134/77
[2024-01-19] MEDS: LEVAQUIN 150 IV (04:14)
[2024-01-19] MEDS: FLAGYL 500 MG 100 IV (04:14)
[2024-01-19] MEDS: TYLENOL 650 MG PO (04:36)
[2024-01-19 05:00] VITALS: BP 139/75
[2024-01-19 06:00] VITALS: BP 125/69
== END 2024-01-19 06:14 | disposition short-term general hospital (02) ==
LOC: EMR 22:28
PROVIDERS: EMERGENCY PHYSICIAN Emergency Medicine; FAMILY PHYSICIAN Emergency Medicine
DX: K75.0 Abscess of liver (principal); Z11.52 Encounter for screening for COVID-19
CPT/HCPCS: 99285; 96365; 96367; 96366 ×2; 96361; 71046; 74177; 80053; 81003; 81015; 83605; 85025; 87040; 87502; 87811; 93005; Q9967

== ENCOUNTER → 2024-03-13 09:22 | Outpatient (REF) | payer BC, SELFPAY ==
[2024-03-13 11:02] LABS: Urine Calcium 13.8 mg/dl
[2024-03-13 11:04] LABS: 24 Hour Urine Calcium 324.3 mg/day; 24 Hour Urine Total Volume 2350 ml
== END ==
LOC: REG 09:22
PROVIDERS: ATTENDING PHYSICIAN Internal Medicine Endocrinology, Diabetes & Metabolism; FAMILY PHYSICIAN Emergency Medicine
DX: E83.52 Hypercalcemia (principal)
CPT/HCPCS: 81050; 82340

== ENCOUNTER → 2024-05-30 06:51 | Outpatient (REF) | payer BC, SELFPAY ==
[2024-05-30 08:18] LABS: ALT (SGPT) 26 U/L (0-35); AST (SGOT) 25 U/L (14-36); Albumin 3.8 g/dl (3.5-5.0); Alkaline Phosphatase 86 U/L (38-126); Blood Urea Nitrogen 18 mg/dl (7-17); Calcium 10.6 mg/dl (8.4-10.2); Carbon Dioxide 30 mmol/L (22-30); Chloride 100 mmol/L (98-107); Glucose 88 mg/dl (70-99); Magnesium 2.1 mg/dl (1.6-2.3); Phosphorus 3.3 mg/dl (2.5-4.5); Potassium 4.7 mmol/L (3.5-5.1); Sodium 140 mmol/L (135-145); Total Bilirubin 0.3 mg/dl (0.2-1.3); Total Protein 6.8 g/dl (6.3-8.2); eGFR > 60.00
[2024-05-30 08:53] LABS: Ferritin 88.8 ng/ml (11.1-264.0)
[2024-05-30 09:24] LABS: Folate 14.6 ng/ml (2.76-20); Vitamin B12 238 pg/ml (239-931)
== END ==
LOC: REG 06:51
PROVIDERS: ATTENDING PHYSICIAN Nurse Practitioner Family; FAMILY PHYSICIAN Emergency Medicine
DX: R25.2 Cramp and spasm (principal)
CPT/HCPCS: 36415; 80053; 82607; 82728; 82746; 83735; 84100; 86618

== ENCOUNTER → 2024-07-15 08:47 | Outpatient (REF) | payer BC, SELFPAY | LOC: RAD 08:47 | PROVIDERS: ATTENDING PHYSICIAN Internal Medicine Endocrinology, Diabetes & Metabolism; FAMILY PHYSICIAN Emergency Medicine | DX: Z78.0 Asymptomatic menopausal state (principal); E83.52 Hypercalcemia; E34.9 Endocrine disorder, unspecified | CPT/HCPCS: 78071; A9500 ==

== ENCOUNTER → 2024-07-21 08:18 | Outpatient (REF) | payer BC, SELFPAY | LOC: HWRAD 08:18 | PROVIDERS: ATTENDING PHYSICIAN Internal Medicine Endocrinology, Diabetes & Metabolism; FAMILY PHYSICIAN Emergency Medicine; REFERRING PHYSICIAN Nurse Practitioner Family | DX: Z78.0 Asymptomatic menopausal state (principal); E83.52 Hypercalcemia; E34.9 Endocrine disorder, unspecified | CPT/HCPCS: 76536; 77080; 77081 ==

== ENCOUNTER → 2024-09-20 07:28 | Outpatient (REF) | payer BC, SELFPAY ==
[2024-09-20 08:41] LABS: % Basophils 0.6 % (0-2); % Eosinophils 1.3 % (0-6); % Immature Granulocytes 0.3 % (0-0.5); % Lymphocytes 14.8 % (20.5-51.1); % Monocytes 4.1 % (1.7-9.3); % Neutrophils 78.9 % (42.2-75.2); Absolute Basophils 0.1 10^3/uL (0-0.2); Absolute Eosinophils 0.1 10^3/uL (0-0.7); Absolute Lymphocytes 1.2 10^3/uL (1.2-3.4); Absolute Monocytes 0.3 10^3/uL (0.1-0.6); Absolute Neutrophils 6.2 10^3/uL (1.4-6.5); Hematocrit 39.5 % (37.0-47.0); Hemoglobin 12.5 g/dL (12.0-16.0); Mean Corp Hgb Conc. 31.6 g/dL (33.0-37.0); Mean Corpuscular Hgb 25.2 pg (27.0-31.0); Mean Corpuscular Volume 79.5 fL (81.0-99.0); Mean Platelet Volume 7.7 fL (7.4-10.4); Nucleated Red Blood Cells % 0 %; Platelet Count 361 10^3/uL (130-400); Red Blood Cell Count 4.97 10^6/uL (4.20-5.40); Red Cell Dist. Width 15.7 % (11.5-14.5); White Blood Cell Count 7.8 10^3/uL (4.8-10.8)
[2024-09-20 08:43] LABS: Ionized Calcium 1.36 mMOL/L (1.15-1.33)
[2024-09-20 09:12] LABS: ALT (SGPT) 21 U/L (0-35); AST (SGOT) 22 U/L (14-36); Albumin 4.3 g/dl (3.5-5.0); Alkaline Phosphatase 98 U/L (38-126); Blood Urea Nitrogen 16 mg/dl (7-17); Calcium 10.5 mg/dl (8.4-10.2); Carbon Dioxide 31 mmol/L (22-30); Chloride 98 mmol/L (98-107); Direct Bilirubin 0.1 mg/dl (0.0-0.4); Glucose 91 mg/dl (70-99); HDL Cholesterol 61 mg/dl; LDL Cholesterol, Calculated 85 mg/dl; Potassium 5.2 mmol/L (3.5-5.1); Sodium 133 mmol/L (135-145); Total Bilirubin 0.7 mg/dl (0.2-1.3); Total Cholesterol 162 mg/dl (50-199); Total Protein 7.9 g/dl (6.3-8.2); Triglyceride 84 mg/dl (10-149); Very Low Density Lipoprotein 16 mg/dl (0-30); eGFR > 60.00
[2024-09-20 09:17] LABS: Prealbumin (Transthyretin) 10.9 mg/dl (17.6-36.0)
[2024-09-20 09:21] LABS: Intact PTH 74.3 pg/ml (13.6-85.8)
[2024-09-20 09:30] LABS: Vitamin D, 25-OH*** 43.4 ng/mL (30-80)
[2024-09-20 09:44] LABS: TSH 2.33 uIU/ml (0.47-4.68)
[2024-09-20 09:51] LABS: Urine Albumin 1+ (Neg - Trace); Urine Bilirubin Negative (Negative); Urine Character Clear (Clear); Urine Color Yellow; Urine Glucose Negative (Negative); Urine Ketone Negative (Negative); Urine Leukocyte 1+ (Negative); Urine Nitrite Negative (Negative); Urine Occult Blood 1+ (Negative); Urine Specific Gravity 1.015 (<1.030); Urine Urobilinogen Negative (Neg - 1+)
[2024-09-20 09:58] LABS: Urine Mucus Few
[2024-09-20 09:59] LABS: Urine Bacteria Few (Negative); Urine Red Blood Cell 0-2 /HPF (0-2); Urine White Cell 0-2 /HPF (0-5)
[2024-09-22 01:48] LABS: Transferrin 161 mg/dL (200-360)
== END ==
LOC: REG 07:28
PROVIDERS: ATTENDING PHYSICIAN Nurse Practitioner Acute Care; FAMILY PHYSICIAN Emergency Medicine; REFERRING PHYSICIAN Internal Medicine Endocrinology, Diabetes & Metabolism
DX: E21.3 Hyperparathyroidism, unspecified (principal); E83.52 Hypercalcemia; E55.9 Vitamin D deficiency, unspecified; E34.9 Endocrine disorder, unspecified; E66.3 Overweight; E78.00 Pure hypercholesterolemia, unspecified; D50.9 Iron deficiency anemia, unspecified; Z00.00 Encounter for general adult medical examination without abnormal findings; Z79.899 Other long term (current) drug therapy; K76.89 Other specified diseases of liver
CPT/HCPCS: 36415; 80053; 80061; 81003; 81015; 82248; 82306; 82330; 83970; 84134; 84443; 84466; 85025

== ENCOUNTER → 2024-09-26 06:53 | Outpatient (REF) | payer BC, SELFPAY | LOC: RAD 06:53 | PROVIDERS: ATTENDING PHYSICIAN Specialist; FAMILY PHYSICIAN Emergency Medicine | DX: K76.89 Other specified diseases of liver (principal) | CPT/HCPCS: 74178; Q9967 ==

== ENCOUNTER → 2024-10-04 10:41 | Outpatient (REF) | payer BC, SELFPAY ==
[2024-10-04 13:37] LABS: CEA 0.43 ng/ml
[2024-10-06 18:52] LABS: CA 19-9 8 U/mL (<=35)
[2024-10-07 07:01] LABS: AFP Male/Tumor Marker 2 ng/mL (0-9)
== END ==
LOC: REG 10:41
PROVIDERS: ATTENDING PHYSICIAN Nurse Practitioner Acute Care; FAMILY PHYSICIAN Emergency Medicine; REFERRING PHYSICIAN Specialist
DX: K76.89 Other specified diseases of liver (principal)
CPT/HCPCS: 36415; 82105; 82378; 86301

== ENCOUNTER → 2024-10-09 07:38 | Outpatient (REF) | payer BC, SELFPAY | LOC: HWRAD 07:38 | PROVIDERS: ATTENDING PHYSICIAN Internal Medicine; FAMILY PHYSICIAN Emergency Medicine; REFERRING PHYSICIAN Specialist | DX: J90 Pleural effusion, not elsewhere classified (principal) | CPT/HCPCS: 71250 ==

== ENCOUNTER → 2024-10-13 09:32 | Outpatient (REF) | payer BC, SELFPAY ==
[2024-10-13 11:20] LABS: Iron 41 ug/dl (37-170)
[2024-10-13 11:31] LABS: Percent Saturation 18 % (20-50); Total Iron Binding Capacity 222 ug/dl (265-497)
[2024-10-13 11:45] LABS: TSH Reflex To Free T4 2.19 uIU/ml (0.47-4.68)
[2024-10-13 11:49] LABS: Ferritin 99.8 ng/ml (11.1-264.0)
[2024-10-13 12:04] LABS: Vitamin B12 350 pg/ml (239-931)
== END ==
LOC: REG 09:32
PROVIDERS: ATTENDING PHYSICIAN Emergency Medicine
DX: D50.9 Iron deficiency anemia, unspecified (principal); R53.83 Other fatigue
CPT/HCPCS: 36415; 82607; 82728; 83540; 83550; 84443; 87086

== ENCOUNTER → 2024-10-21 11:01 | Outpatient (REF) | payer BC, SELFPAY ==
[2024-10-21 11:47] LABS: % Basophils 0.5 % (0-2); % Eosinophils 0.7 % (0-6); % Immature Granulocytes 0.3 % (0-0.5); % Lymphocytes 12.7 % (20.5-51.1); % Monocytes 4.5 % (1.7-9.3); % Neutrophils 81.3 % (42.2-75.2); Absolute Eosinophils 0.1 10^3/uL (0-0.7); Absolute Monocytes 0.3 10^3/uL (0.1-0.6); Absolute Neutrophils 6.2 10^3/uL (1.4-6.5); Hematocrit 36.8 % (37.0-47.0); Hemoglobin 11.5 g/dL (12.0-16.0); Mean Corp Hgb Conc. 31.3 g/dL (33.0-37.0); Mean Corpuscular Hgb 25.7 pg (27.0-31.0); Mean Corpuscular Volume 82.3 fL (81.0-99.0); Mean Platelet Volume 8.1 fL (7.4-10.4); Nucleated Red Blood Cells % 0 %; Platelet Count 331 10^3/uL (130-400); Red Blood Cell Count 4.47 10^6/uL (4.20-5.40); Red Cell Dist. Width 16.8 % (11.5-14.5); White Blood Cell Count 7.6 10^3/uL (4.8-10.8)
[2024-10-21 12:23] LABS: ALT (SGPT) 19 U/L (0-35); AST (SGOT) 24 U/L (14-36); Albumin 4.3 g/dl (3.5-5.0); Alkaline Phosphatase 93 U/L (38-126); Blood Urea Nitrogen 30 mg/dl (7-17); Calcium 10.8 mg/dl (8.4-10.2); Carbon Dioxide 28 mmol/L (22-30); Chloride 102 mmol/L (98-107); Direct Bilirubin 0.3 mg/dl (0.0-0.4); Glucose 108 mg/dl (70-99); Potassium 4.2 mmol/L (3.5-5.1); Sodium 140 mmol/L (135-145); Total Bilirubin 0.5 mg/dl (0.2-1.3); Total Protein 7.8 g/dl (6.3-8.2); eGFR > 60.00
[2024-10-21 12:31] LABS: Prealbumin (Transthyretin) 13.8 mg/dl (17.6-36.0)
[2024-10-21 12:48] LABS: Lipase 62 U/L (23-300)
[2024-10-23 17:53] LABS: Transferrin 188 mg/dL (200-360)
== END ==
LOC: REG 11:01
PROVIDERS: ATTENDING PHYSICIAN Nurse Practitioner Acute Care; FAMILY PHYSICIAN Emergency Medicine
DX: K75.0 Abscess of liver (principal)
CPT/HCPCS: 36415; 80053; 82248; 83690; 84134; 84466; 85025

== ENCOUNTER → 2025-02-17 11:02 | Outpatient (REF) | payer BC, SELFPAY ==
[2025-02-17 16:02] LABS: Hematocrit 37.7 % (37.0-47.0); Hemoglobin 12.6 g/dL (12.0-16.0); Mean Corp Hgb Conc. 33.4 g/dL (33.0-37.0); Mean Corpuscular Volume 82.3 fL (81.0-99.0); Nucleated Red Blood Cells % 0 %; Platelet Count 268 10^3/uL (130-400); Red Cell Dist. Width 14.4 % (11.5-14.5)
[2025-02-17 16:20] LABS: ALT (SGPT) 23 U/L (0-35); AST (SGOT) 23 U/L (14-36); Albumin 4.1 g/dl (3.5-5.0); Alkaline Phosphatase 87 U/L (38-126); Blood Urea Nitrogen 18 mg/dl (7-17); Calcium 10.1 mg/dl (8.4-10.2); Carbon Dioxide 30 mmol/L (22-30); Chloride 100 mmol/L (98-107); Glucose 82 mg/dl (70-99); Potassium 4.4 mmol/L (3.5-5.1); Sodium 135 mmol/L (135-145); Total Protein 7.2 g/dl (6.3-8.2); eGFR > 60.00
== END ==
LOC: RAD 11:02
PROVIDERS: ATTENDING PHYSICIAN Nurse Practitioner Acute Care; FAMILY PHYSICIAN Emergency Medicine
DX: K76.89 Other specified diseases of liver (principal); K75.0 Abscess of liver
CPT/HCPCS: 36415; 74177; 80053; 85025; Q9967

== ENCOUNTER → 2025-03-18 12:57 | Outpatient (REF) | payer BC, SELFPAY ==
[2025-03-18 13:58] LABS: Hematocrit 34.4 % (37.0-47.0); Hemoglobin 11.3 g/dL (12.0-16.0); Mean Corp Hgb Conc. 32.8 g/dL (33.0-37.0); Mean Corpuscular Volume 84.3 fL (81.0-99.0); Nucleated Red Blood Cells % 0 %; Platelet Count 330 10^3/uL (130-400); Red Cell Dist. Width 14.9 % (11.5-14.5)
[2025-03-18 14:19] LABS: ALT (SGPT) 30 U/L (0-35); AST (SGOT) 27 U/L (14-36); Albumin 3.8 g/dl (3.5-5.0); Alkaline Phosphatase 97 U/L (38-126); Blood Urea Nitrogen 21 mg/dl (7-17); Calcium 11.0 mg/dl (8.4-10.2); Carbon Dioxide 27 mmol/L (22-30); Chloride 103 mmol/L (98-107); Glucose 146 mg/dl (70-99); Potassium 4.9 mmol/L (3.5-5.1); Sodium 135 mmol/L (135-145); Total Protein 6.7 g/dl (6.3-8.2); eGFR > 60.00
== END ==
LOC: REG 12:57
PROVIDERS: ATTENDING PHYSICIAN Nurse Practitioner Acute Care; FAMILY PHYSICIAN Emergency Medicine
DX: K76.89 Other specified diseases of liver (principal)
CPT/HCPCS: 36415; 80053; 85025

== ENCOUNTER → 2025-06-24 13:29 | Outpatient (REF) | payer BC, SELFPAY | LOC: REG 13:29 | PROVIDERS: ATTENDING PHYSICIAN Nurse Practitioner Acute Care | DX: K76.89 Other specified diseases of liver (principal) | CPT/HCPCS: 36415; 82565 ==